=== PATIENT | female | born 1955 ===

== ENCOUNTER 2021-08-07 11:45 | Inpatient (IN) | payer OTHER ==
[~2021-08-07] VITALS: Ht 149.9 cm; Wt 52.6 kg
[2021-08-08] MEDS ORDERED: FOSAMAX70 MG PO (08:22)
[2021-08-08] MEDS ORDERED: LIPITOR40 MG PO (08:22)
[2021-08-08] MEDS ORDERED: ZETIA10 MG PO (08:22)
[2021-08-08] MEDS ORDERED: D3 + K2 DOTS 11 EACH PO (08:23)
[2021-08-08] MEDS ORDERED: TOPROL XL25 M1 PO (08:23)
[2021-08-15] MEDS ORDERED: ULTRACET PO (11:36)
[2021-08-15] MEDS ORDERED: HYOSCYAMINE0.125 M1 SL (11:36)
== END 2021-08-15 12:56 | disposition home or self-care (01) | DRG 331 ==
LOC: SURH 08-12 07:00 → SURG 08-12 07:48 → O/R 08-12 07:48 → SURH 08-12 11:45 → SURG 08-12 15:36
PROVIDERS: ADMIT Surgery; ATTEND Surgery
PROC: 07BD3ZX Excision of Aortic Lymphatic, Percutaneous Approach, Diagnostic (ICD-10-PCS; 2021-08-12)
PROC: 3E0F7SF Introduction of Other Gas into Respiratory Tract, Via Natural or Artificial Opening (ICD-10-PCS; 2021-08-12)
PROC: 0DTF4ZZ Resection of Right Large Intestine, Percutaneous Endoscopic Approach (ICD-10-PCS; principal; 2021-08-12 07:00)
DX: C18.0 Malignant neoplasm of cecum (principal); Z20.822 Contact with and (suspected) exposure to COVID-19; I10 Essential (primary) hypertension; M81.0 Age-related osteoporosis without current pathological fracture